=== PATIENT | male | born 1995 | race African-American/Black ===

== ENCOUNTER 2016-05-31 17:14 | Emergency (ER) | payer OTHER ==
--- NOTE | 2016-05-31 17:18 | ER Document Report ---
ED Medical Screen (RME) - General Stated Complaint: RIGHT LEG PAIN Mode of Arrival: Ambulatory Information source: Patient Notes: pt performed 12 mile hike 3 days ago and c/o pain to RLE. Pt c/o pain to right knee area. TRAVEL OUTSIDE OF THE [place] IN LAST 30 DAYS: No - Related Data Allergies/Adverse Reactions: No Known Allergies Allergy (Verified 05/31/16 17:17) Past Medical History - Immunizations Immunizations up to date: Yes Hx Diphtheria, Pertussis, Tetanus Vaccination: Yes Physical Exam - Extremities General lower extremity: Tender - r knee
--- NOTE | 2016-05-31 17:44 | ER Document Report ---
ED Extremity Problem, Lower - General Chief Complaint: Leg Pain Stated Complaint: RIGHT LEG PAIN Time seen by provider: 17:39 Mode of Arrival: Ambulatory Information source: Patient Notes: 20-year-old male presents to ED for pain in his right thigh and right knee for the last 3 days. He states he performed a 12 mile hike in the 3 days ago and pain started during the hike. Has no has not fallen. Does not smoke has not been on any long flights or trips does not have cancer. TRAVEL OUTSIDE OF THE [place] IN LAST 30 DAYS: No - HPI Patient complains to provider of: Pain. No: Injury, Swelling Location: Knee, Thigh Occurred: Other - 3 days Onset/Duration: Gradual Quality of pain: Sharp Severity: Moderate Pain Level: 3 Recent injury: No Associated symptoms: Painful ambulation Exacerbated by: Movement, Walking Relieved by: Nothing - Related Data Allergies/Adverse Reactions: No Known Allergies Allergy (Verified 05/31/16 17:17) Past Medical History - General Information source: Patient - Social History Smoking Status: Never Smoker Cigarette use (# per day): No Chew tobacco use (# tins/day): No Smoking Education Provided: No Frequency of alcohol use: None Drug Abuse: None Occupation: [employer] Lives with: Family Family History: denies: Arthritis, CAD, COPD, CVA, DM, Hyperlipidemia, Hypertension, Malignancy, Thyroid Disfunction Patient has suicidal ideation: No Patient has homicidal ideation: No - Past Medical History Cardiac Medical History: Reports: None Pulmonary Medical History: Reports: None EENT Medical History: Reports: None Neurological Medical History: Reports: None Endocrine Medical History: Reports: None Renal/ Medical History: Reports: None Malignancy Medical History: Reports None GI Medical History: Reports: None Musculoskeltal Medical History: Reports None Skin Medical History: Reports None Psychiatric Medical History: Reports: None Traumatic Medical History: Reports: None Infectious Medical History: Reports: None Surgical Hx: Negative Past Surgical History: Reports: None - Immunizations Immunizations up to date: Yes Hx Diphtheria, Pertussis, Tetanus Vaccination: Yes Review of Systems - Review of Systems Constitutional: No symptoms reported EENT: No symptoms reported Cardiovascular: No symptoms reported Respiratory: No symptoms reported Gastrointestinal: No symptoms reported Genitourinary: No symptoms reported Male Genitourinary: No symptoms reported Musculoskeletal: No symptoms reported Skin: No symptoms reported Hematologic/Lymphatic: No symptoms reported Neurological/Psychological: No symptoms reported -: Yes All other systems reviewed and negative Physical Exam - Vital signs Vitals: Temp Pulse Resp BP Pulse Ox 98.1 F 84 12 125/69 98 05/31/16 17:17 05/31/16 17:17 05/31/16 17:17 05/31/16 17:17 05/31/16 17:17 Interpretation: Normal - General General appearance: Appears well, Alert - HEENT Head: Normocephalic, Atraumatic Eyes: Normal Pupils: PERRL - Respiratory Respiratory status: No respiratory distress Chest status: Nontender Breath sounds: Normal Chest palpation: Normal - Cardiovascular Rhythm: Regular Heart sounds: Normal auscultation Murmur: No - Abdominal Inspection: Normal Distension: No distension Bowel sounds: Normal Tenderness: Nontender Organomegaly: No organomegaly - Back Back: Normal, Nontender - Extremities General upper extremity: Normal inspection, Nontender, Normal color, Normal ROM , Normal temperature General lower extremity: Normal inspection, Normal color, Normal ROM, Normal temperature, Normal weight bearing. No: Cathleen's sign Thigh: Tender - Back of thigh. No: Abrasion, Deformity, Dislocation, Ecchymosis , Instability, Laceration, Unable to bear weight Knee: Tender, Pain with ROM, Patellar tendon intact. No: Abrasion, Deformity, Dislocation, Drawer's test instability, Ecchymosis, Instability, Joint effusion , Laceration, Laxity with valgus stress, Laxity with varus stress, Popliteal fossa tender, Tender joint line, Unable to bear weight - Neurological Neuro grossly intact: Yes Cognition: Normal Orientation: AAOx4 Liz Coma Scale Eye Opening: Spontaneous Muir Coma Scale Verbal: Oriented Muir Coma Scale Motor: Obeys Commands Muir Coma Scale Total: 15 Speech: Normal Motor strength normal: LUE, RUE, LLE, RLE Sensory: Normal - Psychological Associated symptoms: Normal affect, Normal mood - Skin Skin Temperature: Warm Skin Moisture: Dry Skin Color: Normal Course - Re-evaluation Re-evalutation: 05/31/16 18:17 Written report of x-ray given to patient. Patient treated with Toradol IM in the emergency room and discharged home with a prescription for Flexeril. - Vital Signs Vital signs: Temp Pulse Resp BP Pulse Ox 98.1 F 84 12 125/69 98 05/31/16 17:17 05/31/16 17:17 05/31/16 17:17 05/31/16 17:17 05/31/16 17:17 - Diagnostic Test Radiology reviewed: Image reviewed, Reports reviewed Discharge - Discharge Clinical Impression: Myalgia Disposition: HOME, SELF-CARE Additional Instructions: Myalagia (Muscle Pain) Myalgia is pain in the muscles. We use the word myalgia to describe muscle pain where there's no history of injury, no known muscle disease, and the muscles are normal to examination. Myalgias can be a symptom of an acute illness , such as influenza, hepatitis, or any viral illness, especially with fever. Sometimes the muscle pain comes before any other symptoms. Myalgia can also be an early symptom of inflammatory muscle disease, such as lupus. If myalgia is accompanied by an acute illness that explains the muscle pain , then no further testing needs to be done. When there's no clear reason for the pain, tests may be done to see if there's an inflammatory or other disease of the muscles. The usual treatment for myalgias is anti-inflammatory medication, such as ibuprofen. Muscle aches may be soothed with a heating pad or hot compress. If muscles remain painful for more than a few days, you'll need testing and followup. Return if a muscle becomes swollen, red, or severely painful. USE OF TYLENOL (ACETAMINOPHEN): Acetaminophen may be taken for pain relief or fever control. It's much safer than aspirin, offering a wider range of "safe" dosages. It is safe during . Some brand names are Tylenol, Panadol, Datril, Anacin 3, Tempra, and Liquiprin. Acetaminophen can be repeated every four hours. The following are maximum recommended dosages: WEIGHT Dose Drops Elixir Chewable( 80mg) (LBS.) drprs=droppers tsp=teaspoon 6 40 mg 0.4 ml (1/2) 6-11 80 mg 0.8 ml (full) tsp 1 tab 12-16 120 mg 1 1/2 drprs 3/4 tsp 1 1/2 tabs 17-23 160 mg 2 drprs 1 tsp 2 tabs 24-30 240 mg 3 drprs 1 1/2 tsp 3 tabs 30-35 320 mg 2 tsp 4 tabs 36-41 360 mg 2 1/4 tsp 4 1/2 tabs 42-47 400 mg 2 1/2 tsp 5 tabs 48-53 480 mg 3 tsp 6 tabs 54-59 520 mg 3 1/4 tsp 6 1/2 tabs 60-64 560 mg 3 1/2 tsp 7 tabs 65-70 600 mg 3 3/4 tsp 7 1/2 tabs 71-76 640 mg 4 tsp 8 tabs 77-82 720 mg 4 1/2 tsp 9 tabs 83-88 800 mg 5 tsp 10 tabs >89 pounds or adults 650 mg to 900 mg Acetaminophen can be repeated every four hours. Maximum dose not to exceed 4000 mg a day. These maximum recommended dosages are slightly higher than the dosages written on the product container, but these dosages are very safe and below the toxic dosage for acetaminophen. ICE PACKS: Apply ice packs frequently against the painful area. Many different schedules are recommended, such as "20 minutes on, 20 minutes off" or "one hour ice, two hours rest." If you need to work, you may need to go longer between ice treatments. You should plan to have the area ice packed AT LEAST one fourth of the time. The ice should be applied over the wrap, tape, or splint, or over a layer of cloth -- not directly against the skin. Some ice bags have a built-in cloth and can be put directly on the skin. WARM PACKS: After approximately two days, apply gentle heat (such as a heating pad or hot water bottle) for about 20 to 30 minutes about every two hours -- at least four times daily. Warmth and elevation will help you make a more rapid recovery , and will ease the pain considerably. Do not use HOT heat, and never apply heat for longer than 30 minutes. The continuous heat can invisibly damage skin and muscles -- even when no burn is seen on the surface. Damaged muscles can make you MORE sore. MUSCLE RELAXERS: Muscle relaxing medications are usually prescribed for acute muscle spasm or injury to the neck and back. They are often combined with antiinflammatory pain medication for increased relief. You may stop the muscle relaxer when the pain and stiffness have improved. Start the medication again if spasms recur. Muscle relaxers may cause drowsiness, especially with the first dose. Do not operate machinery or drive while under the effects of the medication. Most muscle relaxers last up to 24 hours. Do not combine the medication with alcohol. Toradol Injection You have been given an injection of ketorolac tromethamine (Toradol). This is an excellent, safe drug for pain control. It also has potent antiinflammatory action. You should have significant pain relief within about one hour. Toradol is not addicting and is non-sedating. It does not interfere with driving or work. Call or return if you develop itching, hives, shortness of breath, or rash. USE OF [id number] IBUPROFEN: Ibuprofen (Advil, Nuprin, Medipren, Motrin IB) is a medication for fever and pain control. In addition, it has anti- inflammatory effects which may be beneficial, especially in the treatment of injuries. It's best to take ibuprofen with food. Persons with ulcer disease or allergy to aspirin should notify their physician of this before taking ibuprofen. Ibuprofen can be given every four to six hours, for a total of four doses daily. Age Pain or fever dose Antiinflammatory dose 6-8 yr 200 mg (1 tab) 200 mg (1 tab) 9-11 yr 200 mg (1 tab) 200-400 mg (1-2 tab) 11-14 yr 200-400 mg (1-2 tab) 400 mg (2 tab) 15-adult 400 mg (2 tab) 600 mg (3 tab) FOLLOW-UP CARE: If you have been referred to a physician for follow-up care, call the physician s office for an appointment as you were instructed or within the next two days. If you experience worsening or a significant change in your symptoms, notify the physician immediately or return to the Emergency Department at any time for re-evaluation. Prescriptions: Cyclobenzaprine HCl [Flexeril 10 mg Tablet] 10 mg PO TIDP PRN #15 tab PRN Reason: Forms: Return to Work
[2016-05-31] MEDS ORDERED: KETOROLAC TROMETHAMINE 60 MG/2 ML SDV IM ONE (17:46)
[2016-05-31 18:28] VITALS: BP 115/69
== END 2016-05-31 18:28 | disposition home or self-care (01) ==
LOC: ER 17:14
DX: S93.602A Unspecified sprain of left foot, initial encounter (principal); M79.672 Pain in left foot; W18.40XA Slipping, tripping and stumbling without falling, unspecified, initial encounter
CPT/HCPCS: 99283; 73564; J1885

== ENCOUNTER 2017-09-06 15:39 | Emergency (ER) | payer OTHER ==
[2017-09-06 15:46] VITALS: BP 157/86
[2017-09-06] MEDS ORDERED: TERBUTALINE SULFATE 2.5 MG TABLET PO ONE ×2 (16:07→17:07)
--- NOTE | 2017-09-06 16:08 | ER Document Report ---
ED Medical Screen (RME) - General Chief Complaint: Groin Pain Stated Complaint: GROIN PAIN Time Seen by Provider: 09/06/17 16:03 Notes: 21-year-old male patient with painful erection 3 hours after going to the gym. He has been taking testosterone booster supplement but none in the past 3 weeks. He was seen here on 10/28/2015 for similar problem and was taking bodybuilding enhancements at that time. He was treated with p.o. terbutaline and had resolution of his symptoms. He will be given a dose of terbutaline 10 mg p.o. at this time. I have greeted and performed a rapid initial assessment of this patient. A comprehensive ED assessment and evaluation of the patient, analysis of test results and completion of the medical decision making process will be conducted by additional ED providers. TRAVEL OUTSIDE OF THE [place] IN LAST 30 DAYS: No - Related Data Allergies/Adverse Reactions: No Known Allergies Allergy (Verified 05/31/16 17:17) Past Medical History - Social History Chew tobacco use (# tins/day): No Frequency of alcohol use: None Drug Abuse: None Renal/ Medical History: Denies: Hx Peritoneal Dialysis - Immunizations Immunizations up to date: Yes Hx Diphtheria, Pertussis, Tetanus Vaccination: Yes Physical Exam - Vital signs Vitals: Temp Pulse Resp BP Pulse Ox 97.9 F 64 14 157/86 H 99 09/06/17 15:45 09/06/17 15:45 09/06/17 15:45 09/06/17 15:45 09/06/17 15:45 Course - Vital Signs Vital signs: Temp Pulse Resp BP Pulse Ox 97.9 F 64 14 157/86 H 99 09/06/17 15:45 09/06/17 15:45 09/06/17 15:45 09/06/17 15:45 09/06/17 15:45
--- NOTE | 2017-09-06 17:59 | ER Document Report ---
ED General - General Chief Complaint: Groin Pain Stated Complaint: GROIN PAIN Time Seen by Provider: 09/06/17 16:03 TRAVEL OUTSIDE OF THE [place] IN LAST 30 DAYS: No - HPI Notes: Patient is a 21-year-old male with no significant past medical history presents to the ED complaining of a painful erection now for about 5 hours. Patient states that he takes uxog-nzi-yilwtbs supplements and testosterone boosters for lifting, but has not had any in the past 1-2 weeks. He was seen last year for similar problem due to supplements and he was treated with p.o. terbutaline and had resolution of her symptoms. Patient has already received 1 dose of the terbutaline without any changes. Patient has been eating and drinking without difficulties. He is urinating normally otherwise and having normal bowel movements. Denies any drug allergies. No other concerns or complaints at this time. Denies any headache, fever, head injury, URI, sore throat, chest pain, palpitations, syncope, cough, shortness of breath, wheeze, dyspnea, abdominal pain, nausea/vomiting/diarrhea, urinary retention, dysuria, hematuria, testicular pain, urethral discharge, or rash. No h/o sickle cell - Related Data Allergies/Adverse Reactions: No Known Allergies Allergy (Verified 05/31/16 17:17) Past Medical History - Social History Smoking Status: Never Smoker Chew tobacco use (# tins/day): No Frequency of alcohol use: None Drug Abuse: None Family History: denies: Arthritis, CAD, COPD, CVA, DM, Hyperlipidemia, Hypertension, Malignancy, Thyroid Disfunction Patient has suicidal ideation: No Patient has homicidal ideation: No Renal/ Medical History: Denies: Hx Peritoneal Dialysis - Immunizations Immunizations up to date: Yes Hx Diphtheria, Pertussis, Tetanus Vaccination: Yes Review of Systems - Review of Systems -: Yes All other systems reviewed and negative Physical Exam - Vital signs Vitals: Temp Pulse Resp BP Pulse Ox 97.9 F 64 14 157/86 H 99 09/06/17 15:45 09/06/17 15:45 09/06/17 15:45 09/06/17 15:45 09/06/17 15:45 - Notes Notes: PHYSICAL EXAMINATION: GENERAL: Well-appearing, well-nourished and in no acute distress. LUNGS: Breath sounds clear to auscultation bilaterally and equal. No wheezes rales or rhonchi. HEART: Regular rate and rhythm without murmurs, rubs, gallops. ABDOMEN: Soft, nontender, nondistended abdomen. No guarding, no rebound. No masses appreciated. Normal bowel sounds present. No CVA tenderness bilaterally. : Priapism with mild tenderness to palp, otherwise non-tender to palp of the testicles. No inguinal adenopathy. No discharge or obvious hernia noted. Musculoskeletal: FROM to passive/active. Strength 5+/5. Extremities: No cyanosis, clubbing, or edema b/l. Peripheral pulses 2+. Capillary refill less than 3 seconds. NEUROLOGICAL: Normal speech, normal gait. Normal sensory, motor exams PSYCH: Normal mood, normal affect. SKIN: Warm, Dry, normal turgor, no rashes or lesions noted. Course - Re-evaluation Re-evalutation: 09/06/17 20:25 Dr. Javier aided with instruction and dosing for this patient as well as treatment approach. Dr. Javier in agreement with dispo/plan after review of results and procedure. Patient is an afebrile, well-hydrated, 21-year-old male who presents to the ED with priapism. Vitals are acceptable. PE is otherwise unremarkable. Pt was given 1 PO dose of terbutaline and 1 subq dose as well without change. An injection of 500 mcg phenylephrine in 1ml solution mixed with saline placed bilaterally which resolved symptoms. Patient states that he is "back to normal. " No other labs or imaging warranted at this time based on H&P. Patient advised not to take anymore the supplements. Patient to go home and start taking pseudoephedrine and he may use as needed for any recurrence. Advise recheck with PCM in 3-5 days. Consider consult with a urologist as well. Return to the ED with any worsening/concerning symptoms otherwise as reviewed discharge. Patient is in agreement. - Vital Signs Vital signs: Temp Pulse Resp BP Pulse Ox 97.9 F 64 14 157/86 H 99 09/06/17 15:45 09/06/17 15:45 09/06/17 15:45 09/06/17 15:45 09/06/17 15:45 Procedures - Additional Procedures Intracavernous Injection Time performed: 20:15 Additional Procedures: Other - Priapism: 500mcg of phenylephrine mixed with 9cc saline = 500mcg/ml solution. 1ml placed b/l with a 30g needle successfully w/o complications. Pt tolerated procedure well and had resolution within 5minutes. Discharge - Discharge Clinical Impression: Priapism Condition: Stable Disposition: HOME, SELF-CARE Instructions: Priapism ([facility]) Additional Instructions: Avoid supplementation Take oral pseudoephedrine beginning tonight for the next 1-2 days and then as needed thereafter Maintain adequate fluid intake Monitor for any worsening symptoms Recheck with your PCM in 3-5 days Consider consult with a urologist Return to the ED with any worsening symptoms and/or development of fever, headache, chest pain, palpitations, syncope, shortness of breath, trouble breathing, abdominal pain, n/v/d, blood in stool/urine, loss of control of bowel /bladder, urinary retention, muscle weakness/paralysis, saddle anesthesia, numbness/tingling, erection that is unresponsive to oral pseudafed, or other worsening symptoms that are concerning to you. Forms: Elevated Blood Pressure Referrals: [facility] [Provider Group] - Follow up as needed
[2017-09-06] MEDS ORDERED: TERBUTALINE SULFATE INJ/PF 1 MG/1 ML SDV SUBCUT ONE (18:27)
[2017-09-06] MEDS ORDERED: TERBUTALINE SULFATE 2.5 MG TABLET ONE (18:28)
[2017-09-06] MEDS ORDERED: PHENYLEPHRINE HCL INJ/PF 10 MG/1 ML SDV INJ PRN (19:39)
== END 2017-09-06 20:39 | disposition home or self-care (01) ==
LOC: ER 15:39
DX: N48.33 Priapism, drug-induced (principal); T38.7X5A Adverse effect of androgens and anabolic congeners, initial encounter; R10.30 Lower abdominal pain, unspecified
CPT/HCPCS: 99284; 96372; 96374; J2370; J3105; J3490

== ENCOUNTER 2017-09-11 05:14 | Emergency (ER) | payer OTHER ==
[2017-09-11 05:31] VITALS: BP 149/70
[2017-09-11] MEDS ORDERED: PHENYLEPHRINE HCL INJ/PF 10 MG/1 ML SDV INJ PRN (05:37)
--- NOTE | 2017-09-11 05:43 | ER Document Report ---
ED General - General Chief Complaint: Penile Problem Stated Complaint: PROLONGED ERECTION Time Seen by Provider: 09/11/17 05:34 TRAVEL OUTSIDE OF THE [place] IN LAST 30 DAYS: No - HPI Notes: Patient is a 21-year-old male with no significant past medical history presents to the ED complaining of a painful erection now for about 4 hours. Patient states that he takes xrip-uwq-tqhzzty supplements and testosterone boosters for lifting, but has not had any in the past 2-3 weeks. I did see him for this same issue this past week. Pt states that his symptoms were resolved until 0100 this morning. Pt states that he was taking pseudafed daily for 2 days which seemed to keep the prolonged erection away, but he hasn't been taking it recently. He states that his symptoms are the same as the recent visit. No other concerns or complaints. Patient has been eating and drinking without difficulties. He is urinating normally otherwise and having normal bowel movements. Denies any drug allergies. Pt was taking trazadone, but has not been taking it in the last 1.5 weeks. No other concerns or complaints at this time. Denies any headache, fever, head injury, URI, sore throat, chest pain, palpitations, syncope, cough, shortness of breath, wheeze, dyspnea, abdominal pain, nausea/vomiting/diarrhea, urinary retention, dysuria, hematuria, testicular pain, urethral discharge, or rash. - Related Data Allergies/Adverse Reactions: No Known Allergies Allergy (Verified 05/31/16 17:17) Past Medical History - Social History Smoking Status: Never Smoker Family History: denies: Arthritis, CAD, COPD, CVA, DM, Hyperlipidemia, Hypertension, Malignancy, Thyroid Disfunction Renal/ Medical History: Denies: Hx Peritoneal Dialysis - Immunizations Immunizations up to date: Yes Hx Diphtheria, Pertussis, Tetanus Vaccination: Yes Review of Systems - Review of Systems -: Yes All other systems reviewed and negative Physical Exam - Vital signs Vitals: Temp Pulse Resp BP Pulse Ox 97.9 F 63 18 149/70 H 100 09/11/17 05:28 09/11/17 05:28 09/11/17 05:28 09/11/17 05:28 09/11/17 05:28 - Notes Notes: PHYSICAL EXAMINATION: GENERAL: Well-appearing, well-nourished and in no acute distress. LUNGS: Breath sounds clear to auscultation bilaterally and equal. No wheezes rales or rhonchi. HEART: Regular rate and rhythm without murmurs, rubs, gallops. ABDOMEN: Soft, nontender, nondistended abdomen. No guarding, no rebound. No masses appreciated. Normal bowel sounds present. No CVA tenderness bilaterally. : Priapism with mild tenderness to palp, otherwise non-tender to palp of the testicles. No inguinal adenopathy. No discharge or obvious hernia noted. Musculoskeletal: FROM to passive/active. Strength 5+/5. Extremities: No cyanosis, clubbing, or edema b/l. Peripheral pulses 2+. Capillary refill less than 3 seconds. NEUROLOGICAL: Normal speech, normal gait. Normal sensory, motor exams PSYCH: Normal mood, normal affect. SKIN: Warm, Dry, normal turgor, no rashes or lesions noted. Course - Re-evaluation Re-evalutation: 09/11/17 06:04 Dr. Hu aided with instruction and dosing for this patient as well as treatment approach. Dr. Hu in agreement with dispo/plan after review of results and procedure. Patient is an afebrile, well-hydrated, 21-year-old male who presents to the ED with priapism. Vitals are acceptable. PE is otherwise unremarkable. One injection of 500 mcg phenylephrine in 1ml solution mixed with saline placed bilaterally to the cavernosa which resolved symptoms. Patient states that he is "back to normal." PE confirmed that he is flaccid and no longer erect or tender. No other labs or imaging warranted at this time based on H&P. Patient to go home and start taking pseudoephedrine and he may use as needed for any recurrence. Advise recheck with PCM in 3-5 days. Schedule a consult with a urologist as well. Return to the ED with any worsening/concerning symptoms otherwise as reviewed discharge. Patient is in agreement. - Vital Signs Vital signs: Temp Pulse Resp BP Pulse Ox 97.9 F 63 18 149/70 H 100 09/11/17 05:28 09/11/17 05:28 09/11/17 05:28 09/11/17 05:28 09/11/17 05:28 Procedures - Additional Procedures Intracavernous Injection Time performed: 06:00 Notes: 09/11/17 06:06 Priapism: 10mg of phenylephrine mixed with 19cc saline = 500mcg/ml solution. 1ml placed b/l with a 30g needle successfully w/o complications. Pt tolerated procedure well and had resolution within 5 minutes. Discharge - Discharge Clinical Impression: Priapism Condition: Stable Disposition: HOME, SELF-CARE Additional Instructions: Avoid supplementation and discontinue trazodone (may cause priapism) Take oral pseudoephedrine beginning tonight for the next 1-2 days and then as needed thereafter Maintain adequate fluid intake Monitor for any worsening symptoms Recheck with your PCM in 3-5 days Call and schedule a consult with a urologist Return to the ED with any worsening symptoms and/or development of fever, headache, chest pain, palpitations, syncope, shortness of breath, trouble breathing, abdominal pain, n/v/d, blood in stool/urine, loss of control of bowel /bladder, urinary retention, muscle weakness/paralysis, saddle anesthesia, numbness/tingling, erection that is unresponsive to oral pseudafed, or other worsening symptoms that are concerning to you. Forms: Elevated Blood Pressure Referrals: BETZY GALARZA MD [[facility]] - Follow up as needed
== END 2017-09-11 06:25 | disposition home or self-care (01) ==
LOC: ER 05:14
DX: N48.30 Priapism, unspecified (principal)
CPT/HCPCS: 99284; 96374; J2370

== ENCOUNTER 2017-09-13 05:49 | Emergency (ER) | payer OTHER ==
[2017-09-13] MEDS ORDERED: PHENYLEPHRINE HCL INJ/PF 10 MG/1 ML SDV INJ PRN (05:53)
[2017-09-13 05:58] VITALS: BP 151/95
--- NOTE | 2017-09-13 06:20 | ER Document Report ---
ED General - General Chief Complaint: Penile Pain Stated Complaint: PAINFUL ERECTION Time Seen by Provider: 09/13/17 05:59 TRAVEL OUTSIDE OF THE [place] IN LAST 30 DAYS: No - HPI Notes: Patient is a 21-year-old male with no significant past medical history presents to the ED complaining of a painful erection now for about 4 hours. This is the 3rd time in the last week that I have seen this patient for the same issue. Patient states that he takes [id number]-floccju supplements and testosterone boosters for lifting, but has not had any in the past 2-3 weeks. Pt states that he was taking Sudafed daily for 2 days. He states that he was sexually active yesterday and did not have any issues becoming flaccid, but became aroused this past night and it didn't go away. Pt states that he did not have sex, but was able to 'relieve' himself, but without return to normal. He states that his symptoms are the same as the recent visits. He is scheduled with Urology in 2 days. No other concerns or complaints. Patient has been eating and drinking without difficulties. He is urinating normally otherwise and having normal bowel movements. Denies any drug allergies. No other concerns or complaints at this time. Denies any headache, fever, head injury, URI, sore throat, chest pain, palpitations, syncope, cough, shortness of breath , wheeze, dyspnea, abdominal pain, nausea/vomiting/diarrhea, urinary retention, dysuria, hematuria, testicular pain, urethral discharge, or rash. - Related Data Allergies/Adverse Reactions: No Known Allergies Allergy (Verified 05/31/16 17:17) Past Medical History - Social History Smoking Status: Never Smoker Family History: denies: Arthritis, CAD, COPD, CVA, DM, Hyperlipidemia, Hypertension, Malignancy, Thyroid Disfunction Renal/ Medical History: Denies: Hx Peritoneal Dialysis - Immunizations Immunizations up to date: Yes Hx Diphtheria, Pertussis, Tetanus Vaccination: Yes Review of Systems - Review of Systems -: Yes All other systems reviewed and negative Physical Exam - Vital signs Vitals: Temp Pulse Resp BP Pulse Ox 98.1 F 67 18 151/95 H 67 L 09/13/17 05:58 09/13/17 05:58 09/13/17 05:58 09/13/17 05:58 09/13/17 05:58 - Notes Notes: PHYSICAL EXAMINATION: GENERAL: Well-appearing, well-nourished and in no acute distress. LUNGS: Breath sounds clear to auscultation bilaterally and equal. No wheezes rales or rhonchi. HEART: Regular rate and rhythm without murmurs, rubs, gallops. ABDOMEN: Soft, nontender, nondistended abdomen. No guarding, no rebound. No masses appreciated. Normal bowel sounds present. No CVA tenderness bilaterally. : Priapism with mild tenderness to palp, otherwise non-tender to palp of the testicles. No inguinal adenopathy. No discharge or obvious hernia noted. Musculoskeletal: FROM to passive/active. Strength 5+/5. Extremities: No cyanosis, clubbing, or edema b/l. Peripheral pulses 2+. Capillary refill less than 3 seconds. NEUROLOGICAL: Normal speech, normal gait. Normal sensory, motor exams PSYCH: Normal mood, normal affect. SKIN: Warm, Dry, normal turgor, no rashes or lesions noted. Course - Re-evaluation Re-evalutation: 09/13/17 06:23 Patient is an afebrile, well-hydrated, 21-year-old male who presents to the ED with priapism. Vitals are acceptable. PE is otherwise unremarkable. One injection of 500 mcg phenylephrine per 1ml solution mixed with saline placed bilaterally to the cavernosa which resolved symptoms within 5 minutes. Patient states that he is "back to normal." PE confirmed that he is flaccid and no longer erect or tender. No other labs or imaging warranted at this time based on H&P. Patient to go home and start taking sudafed and he may use as needed for any recurrence. Advise recheck with PCM in 3-5 days. Keep appointment with Urology on Thursday. Return to the ED with any worsening/concerning symptoms otherwise as reviewed discharge. Patient is in agreement. - Vital Signs Vital signs: Temp Pulse Resp BP Pulse Ox 98.1 F 67 18 151/95 H 67 L 09/13/17 05:58 09/13/17 05:58 09/13/17 05:58 09/13/17 05:58 09/13/17 05:58 Procedures - Additional Procedures Intravacernous injection Time performed: 06:15 Notes: 09/13/17 06:25 Priapism: 10mg of phenylephrine mixed with 19cc saline = 500mcg/ml solution. 1ml placed b/l with a 30g needle successfully w/o complications. Pt tolerated procedure well and had resolution within 5 minutes. Discharge - Discharge Clinical Impression: Priapism Condition: Stable Disposition: HOME, SELF-CARE Additional Instructions: Avoid supplementation Take oral Sudafed beginning tonight for the next 1-2 days and then as needed thereafter Try your best to avoid developing an erection until evaluation with Urology. Maintain adequate fluid intake Monitor for any worsening symptoms Recheck with your PCM in 3-5 days Keep appointment with the Urologist on Thursday* Return to the ED with any worsening symptoms and/or development of fever, headache, chest pain, palpitations, syncope, shortness of breath, trouble breathing, abdominal pain, n/v/d, blood in stool/urine, loss of control of bowel /bladder, urinary retention, muscle weakness/paralysis, saddle anesthesia, numbness/tingling, erection that is unresponsive to oral Sudafed, or other worsening symptoms that are concerning to you. Referrals: BETZY GALARZA MD [[facility]] - 09/15/17
== END 2017-09-13 06:30 | disposition home or self-care (01) ==
LOC: ER 05:49
DX: N48.30 Priapism, unspecified (principal)
CPT/HCPCS: 99283; 96374; J2370

== ENCOUNTER 2017-09-16 04:39 | Emergency (ER) | payer OTHER ==
[2017-09-16] MEDS ORDERED: PHENYLEPHRINE HCL INJ/PF 10 MG/1 ML SDV INJ ONE (04:52)
--- NOTE | 2017-09-16 05:31 | ER Document Report ---
ED General - General Chief Complaint: Penile Problem Stated Complaint: GENITAL PAIN Notes: Patient is a very pleasant 22-year-old male who presents with complaint of previous him. He has had this twice before. He is reduced both times here in the ER. He actually has an appointment with his urologist this morning at 10 AM. last time he was here he said he received 2 injections in his penis and immediately went flaccid within 5 minutes. I did review the previous charts and it appears he received phenylephrine injections. Patient says the erection happens spontaneously. Says it is been there for approximate 4 hours. He has no history of sickle cell disease. He does have a history of using testosterone supplementation. He says he recently just quit this because of the priapism. TRAVEL OUTSIDE OF THE [place] IN LAST 30 DAYS: No - Related Data Allergies/Adverse Reactions: No Known Allergies Allergy (Verified 05/31/16 17:17) Past Medical History - Social History Smoking Status: Unknown if Ever Smoked Frequency of alcohol use: None Drug Abuse: None Family History: Reviewed & Not Pertinent. denies: Arthritis, CAD, COPD, CVA, DM , Hyperlipidemia, Hypertension, Malignancy, Thyroid Disfunction Patient has suicidal ideation: No Patient has homicidal ideation: No Renal/ Medical History: Denies: Hx Peritoneal Dialysis - Immunizations Immunizations up to date: Yes Hx Diphtheria, Pertussis, Tetanus Vaccination: Yes Review of Systems - Review of Systems Notes: My Normal Review Basic REVIEW OF SYSTEMS: CONSTITUTIONAL : Denies fever, chills, or sweats. Denies recent illness. GASTROINTESTINAL: Denies abdominal pain. GENITOURINARY: Previous of her last 4 hours. MUSCULOSKELETAL: Denies neck or back pain or joint pain or swelling. SKIN: Denies rash or skin lesions. HEMATOLOGIC : Denies easy bruising or bleeding. No recent history of sickle cell disease. ALL OTHER SYSTEMS REVIEWED AND NEGATIVE. Physical Exam - Notes Notes: General Appearance: Well nourished, alert, cooperative, no acute distress, no obvious discomfort. Appearing Vitals: reviewed, See vital signs table. Genitalia: Patient's has almost completely full erection. No discoloration of the penis. Skin: warm, dry, appropriate color, no rash Neuro: speech clear, oriented x 3, normal affect, responds appropriately to questions. Course - Re-evaluation Re-evalutation: 09/16/17 05:36 Patient responded well to aspiration of 5 mL's of blood followed by injection of Moncho-Synephrine. Patient is now flaccid without any further complaints. Tolerated procedure well. Patient be discharged her to follow-up closely with his urologist this morning. He is encouraged to return to ER if he has recurrence of erection that does not resolve on its own within an hour. Patient agrees with plan will be discharged home. I encouraged him to continue to stay away from testosterone supplementation. Dictation of this chart was performed using voice recognition software; therefore, there may be some unintended grammatical errors. Procedures - Additional Procedures priapism injection Additional Procedures: Other Notes: 09/16/17 05:29 Patient's penile shaft was cleaned with chlorhexidine. I then used a 23-gauge butterfly needle and aspirated 5 mL's of blood from the corpus cavernosum on the right side. I then injected 1 mL of a Moncho-Synephrine mixture containing 500mcg /ml. I then injected 1 mL of the Moncho-synephrine mixture on the left side the corpus cavernosum as well. Patient's prism resolved within 5 minutes. I placed a Coban wrap around patient's penile shaft. Informed him to remove it within 1 hour. I wrapped the Coban wrap firm but not tight. Patient has complete resolution of symptoms and feels better. I informed him to remove the Coban wrapping in 1 hour. No comp occasions. Neosynephrine mixture was created by mixing 1ml of the 10mg/ml Nesoynephrine solution with 19mls of normal saline ; therefore, giving 10mg of Neosynephrine in 20mls of solution. 09/16/17 05:32 09/16/17 05:32 Discharge - Discharge Clinical Impression: Priapism Condition: Good Disposition: HOME, SELF-CARE Additional Instructions: Please return to the ER immediately if you develop recurrence of an erection that will not go away within an hour. Please remove the elastic wrap of your penis in 1 hour. Please follow up closely with your urologist at 10am this morning as scheduled.
== END 2017-09-16 05:37 | disposition home or self-care (01) ==
LOC: ER 04:39
DX: N48.30 Priapism, unspecified (principal)
CPT/HCPCS: 99283; 96374; J2370

== ENCOUNTER 2017-09-17 09:40 | Emergency (ER) | payer OTHER ==
[2017-09-17 09:49] VITALS: BP 140/79
[2017-09-17] MEDS ORDERED: PSEUDOEPHEDRINE HCL 30 MG TABLET PO ONE (09:57)
--- NOTE | 2017-09-17 10:01 | ER Document Report ---
ED Medical Screen (RME) - General Chief Complaint: Groin Pain Stated Complaint: GROIN PAIN Time Seen by Provider: 09/17/17 09:56 Notes: RME DISCLOSURE I have seen this patient as part of a Rapid Medical Evaluation and, if applicable, placed any initially appropriate orders. The patient will be seen and fully evaluated, including a full history and physical exam, by a provider ( in Main ED or Fast Track) when a room becomes available. 22-year-old male PMH recurrent priapism (in the past has required injections) here with complaints of erection that started approximately 4 hours ago. He states that it started with "morning wood" and had progressively worsened to a point but since then it has started to improve. He did not try taking anything for the symptoms. He states this all started when he started taking testosterone boosters 2 months ago however he has not taken any in almost 2 months. He does not have sickle cell or other medical history, he reports. He had a urologist appointment yesterday but they told him he needed a referral to be seen. He denies using Viagra or other similar medications. TRAVEL OUTSIDE OF THE [place] IN LAST 30 DAYS: No - Related Data Allergies/Adverse Reactions: No Known Allergies Allergy (Verified 05/31/16 17:17) Past Medical History - Social History Frequency of alcohol use: Occasional Renal/ Medical History: Denies: Hx Peritoneal Dialysis - Immunizations Immunizations up to date: Yes Hx Diphtheria, Pertussis, Tetanus Vaccination: Yes Physical Exam - Vital signs Vitals: Temp Pulse Resp BP Pulse Ox 98.8 F 61 16 140/79 H 98 09/17/17 09:45 09/17/17 09:45 09/17/17 09:45 09/17/17 09:45 09/17/17 09:45 Course - Vital Signs Vital signs: Temp Pulse Resp BP Pulse Ox 98.8 F 61 16 140/79 H 98 09/17/17 09:45 09/17/17 09:45 09/17/17 09:45 09/17/17 09:45 09/17/17 09:45
--- NOTE | 2017-09-17 10:23 | ER Document Report ---
ED GI/ - General Chief Complaint: Groin Pain Stated Complaint: GROIN PAIN Time Seen by Provider: 09/17/17 09:56 Notes: History of present illness history of-22 years old male with multiple episodes of breast present within the last 2 months, presents today with another episode. Lasted for 2 hours by the time I saw him it has come down pinning penile stiffness as decreased. He went to the urologist yesterday but he needed a referral. Therefore came to the ED. REVIEW OF SYSTEMS: CONSTITUTIONAL : Denies fever, chills, or sweats. Denies recent illness. EENT: Denies eye, ear, throat, or mouth pain or symptoms. Denies nasal or sinus congestion or discharge. Denies throat, tongue, or mouth swelling or difficulty swallowing. CARDIOVASCULAR: Denies chest pain. Denies palpitations or racing or irregular heart beat. Denies ankle edema. RESPIRATORY: Denies cough, cold, or chest congestion. Denies shortness of breath, difficulty breathing, or wheezing. GASTROINTESTINAL: Denies abdominal pain or distention. Denies nausea, vomiting , or diarrhea. Denies blood in vomitus, stools, or per rectum. Denies black, tarry stools. Denies constipation. GENITOURINARY: Denies difficulty urinating, painful urination, burning, frequency, blood in urine, or discharge. MUSCULOSKELETAL: Denies back or neck pain or stiffness. Denies joint pain or swelling. SKIN: Denies rash, lesions or sores. HEMATOLOGIC : Denies easy bruising or bleeding. LYMPHATIC: Denies swollen, enlarged glands. NEUROLOGICAL: Denies confusion or altered mental status. Denies passing out or loss of consciousness. Denies dizziness or lightheadedness. Denies headache. Denies weakness or paralysis or loss of use of either side. Denies problems with gait or speech. Denies sensory loss, numbness, or tingling. Denies seizures. PSYCHIATRIC: Denies anxiety or stress. Denies depression, suicidal ideation, or homicidal ideation. ALL OTHER SYSTEMS REVIEWED AND NEGATIVE. Dictation was performed using [employer] recognition software PHYSICAL EXAMINATION: GENERAL: Well-appearing, well-nourished and in no acute distress. HEAD: Atraumatic, normocephalic. EYES: Pupils equal round and reactive to light, extraocular movements intact, sclera anicteric, conjunctiva are normal. ENT: Nares patent, oropharynx clear without exudates. Moist mucous membranes. NECK: Normal range of motion, supple without lymphadenopathy LUNGS: Breath sounds clear to auscultation bilaterally and equal. No wheezes rales or rhonchi. HEART: Regular rate and rhythm without murmurs ABDOMEN: Soft, nontender, nondistended abdomen. No guarding, no rebound. No masses appreciated. Musculoskeletal: Normal range of motion, no pitting or edema. No cyanosis. NEUROLOGICAL: Cranial nerves grossly intact. Normal speech, normal gait. Normal sensory, motor exams PSYCH: Normal mood, normal affect. SKIN: Warm, Dry, normal turgor, no rashes or lesions noted. History of present illness TRAVEL OUTSIDE OF THE [place] IN LAST 30 DAYS: No - HPI Patient complains to provider of: No: Abdominal pain, Diarrhea, Dysuria, Feeding tube problem, Flank pain, Christianson catheter problem, Groin pain, Hematuria , Testicular pain, Urinary retention, Vomiting, Other Severity at maximum: Mild Severity in ED: Mild Context: denies: Bad food, Lifting, Out of the country travel, , Recent trauma, Other Location: No: Chest pain, Epigastric, LUQ, LLQ, RUQ, RLQ, Left flank, Right flank, Low back, Suprapubic, Pelvis, Left testicle, Right testicle, Rectal, Other - Related Data Allergies/Adverse Reactions: No Known Allergies Allergy (Verified 05/31/16 17:17) Past Medical History - Social History Smoking Status: Never Smoker Frequency of alcohol use: Occasional Family History: Reviewed & Not Pertinent. denies: Arthritis, CAD, COPD, CVA, DM , Hyperlipidemia, Hypertension, Malignancy, Thyroid Disfunction Patient has suicidal ideation: No Patient has homicidal ideation: No Renal/ Medical History: Denies: Hx Peritoneal Dialysis - Immunizations Immunizations up to date: Yes Hx Diphtheria, Pertussis, Tetanus Vaccination: Yes Review of Systems - Review of Systems -: Yes ROS unobtainable due to patient's medical condition Constitutional: denies: No symptoms reported, See HPI, Chills, Diaphoresis, Fever, Malaise, Weakness, Other, Weight gain, Weight loss, Recent illness EENT: denies: No symptoms reported, See HPI, Eye pain, Eye discharge, Blurred vision, Tearing, Double vision, Ear pain, Ear discharge, Nose pain, Nose congestion, Nose discharge, Sinus pressure, Sinus discharge, Throat pain, Difficulty swallowing, Throat swelling, Mouth pain, Mouth swelling, Dental problem, Vertigo, Other Cardiovascular: denies: No symptoms reported, See HPI, Chest pain, Palpitations , Heart racing, Orthopnea, Dyspnea, Syncope, Dizziness, Lightheaded, Edema, Other, Paroxysmal Nocturnal Dysp Respiratory: denies: No symptoms reported, See HPI, Cough, Hurts to breathe, Hemoptysis, Short of breath, Sputum, Stridor, Wheezing, Other Gastrointestinal: denies: No symptoms reported, See HPI, Abdomen distended, Abdominal pain, Diarrhea, Nausea, Vomiting, Constipation, Blood streaked bowels , Poor appetite, Poor fluid intake, Blood in vomit, Black stools, Rectal bleeding, Last bowel movement, Fecal incontinence, Other Genitourinary: denies: No symptoms reported, See HPI, Burning, Dysuria, Discharge, Frequency, Flank pain, Hematuria, Incontinence, Pain, Urgency, Retention, Other Male Genitourinary: denies: No symptoms reported, See HPI, Erectile dysfunction , Testicular pain, Penile discharge, Other Musculoskeletal: denies: No symptoms reported, See HPI, Back pain, Gout, Joint pain, Joint swelling, Muscle pain, Muscle stiffness, Neck pain, Deformity, Leg swelling, Ankle swelling, Other Skin: denies: No symptoms reported, See HPI, Change in color, Change in hair/ nails, Dryness, Lesions, Lumps, Rash, Other Neurological/Psychological: denies: No symptoms reported, See HPI, Confusion, Dementia, Depression, Hallucinations, Anxiety, Homicidal ideation, Sensory change, Weakness, Gait changes, Loss of power, Paralysis, Seizure, Lost consciousness, Headaches, Speech impairment, Numbness, Suicidal ideation, Tingling, Tremor, Other Physical Exam - Vital signs Vitals: Temp Pulse Resp BP Pulse Ox 98.8 F 61 16 140/79 H 98 09/17/17 09:45 09/17/17 09:45 09/17/17 09:45 09/17/17 09:45 09/17/17 09:45 Course - Re-evaluation Re-evalutation: 09/17/17 10:23 He was explained that he needs to go to [facility] to get the referral. - Vital Signs Vital signs: Temp Pulse Resp BP Pulse Ox 98.8 F 61 16 140/79 H 98 09/17/17 09:45 09/17/17 09:45 09/17/17 09:45 09/17/17 09:45 09/17/17 09:45 Discharge - Discharge Clinical Impression: Priapism Condition: Fair Disposition: HOME, SELF-CARE Instructions: Helga ([facility])
== END 2017-09-17 10:28 | disposition home or self-care (01) ==
LOC: ER 09:40
DX: N48.30 Priapism, unspecified (principal); R10.30 Lower abdominal pain, unspecified
CPT/HCPCS: 99283

== ENCOUNTER 2017-09-18 04:24 | Emergency (ER) | payer OTHER ==
[2017-09-18 04:30] VITALS: BP 129/77
--- NOTE | 2017-09-18 04:48 | ER Document Report ---
ED GI/ - General Chief Complaint: Penile Problem Stated Complaint: PENILE PROBLEM Time Seen by Provider: 09/18/17 04:42 Notes: The patient is a 22-year-old male who presents with another episode of priapism for the past hour. He has had frequent episodes this week and had difficulty seeing the [place] [facility] because of a referral needed from [facility]. [place]. In the past, phenylephrine injections into the corpus cavernosum have helped him. He started testosterone pills a few months ago, but his last use was 2 weeks ago. Denies any psychiatric medications, history of sickle cell or injury. TRAVEL OUTSIDE OF THE [place] IN LAST 30 DAYS: No - Related Data Allergies/Adverse Reactions: No Known Allergies Allergy (Verified 05/31/16 17:17) Past Medical History - General Information source: Patient - Social History Smoking Status: Unknown if Ever Smoked Family History: Reviewed & Not Pertinent. denies: Arthritis, CAD, COPD, CVA, DM , Hyperlipidemia, Hypertension, Malignancy, Thyroid Disfunction Renal/ Medical History: Denies: Hx Peritoneal Dialysis - Immunizations Immunizations up to date: Yes Hx Diphtheria, Pertussis, Tetanus Vaccination: Yes Review of Systems - Review of Systems Notes: REVIEW OF SYSTEMS: CONSTITUTIONAL: -fevers, -chills GASTROINTESTINAL: -abdominal pain, -nausea, -vomiting, -diarrhea GENITOURINARY: +priapism, -dysuria, -hematuria MUSCULOSKELETAL: -back pain, -neck pain SKIN: -rash or skin lesions. HEMATOLOGIC: -easy bruising or bleeding. LYMPHATIC: -swollen, enlarged glands. NEUROLOGICAL: -altered mental status or loss of consciousness, -headache, - neurologic symptoms PSYCHIATRIC: -anxiety, -depression. ALL OTHER SYSTEMS REVIEWED AND NEGATIVE. Physical Exam - Vital signs Vitals: Temp Pulse Resp BP Pulse Ox 98.7 F 65 18 129/77 H 97 09/18/17 04:29 09/18/17 04:29 09/18/17 04:29 09/18/17 04:29 09/18/17 04:29 - Notes Notes: PHYSICAL EXAMINATION: GENERAL: Well-appearing, well-nourished and in no acute distress. HEAD: Atraumatic, normocephalic. EYES: Pupils equal round and reactive to light, extraocular movements intact, sclera anicteric, conjunctiva are normal. ENT: nares patent, oropharynx clear without exudates. Moist mucous membranes. NECK: Normal range of motion, supple without lymphadenopathy ABDOMEN: Soft, nontender, normoactive bowel sounds. No guarding, no rebound. No masses appreciated. : Erect penis, soft glans, non-tender testicles. EXTREMITIES: Normal range of motion, no pitting or edema. No cyanosis. NEUROLOGICAL: Cranial nerves grossly intact. Normal speech, normal gait. Normal sensory and motor exams. PSYCH: Normal mood, normal affect. SKIN: Warm, Dry, normal turgor, no rashes or lesions noted. Course - Re-evaluation Re-evalutation: Patient with recurrent priapism episodes. After 2 mL diluted phenylephrine, his priapism resolved. He has an appointment with the urologist at [facility]. Given return precautions and he understands. PROCEDURE NOTE: 09/18/17 04:47 Patient's penile shaft was cleaned with chlorhexidine. I then used a 23-gauge butterfly needle and aspirated 5 mL's of blood from the corpus cavernosum on the right side. I then injected 2 mL of a Moncho-Synephrine mixture containing 500 mcg/ml. Patient's prism resolved within 5 minutes. Patient has complete resolution of symptoms and feels better. Neosynephrine mixture was created by mixing 1ml of the 10mg/ml Nesoynephrine solution with 19mls of normal saline; therefore, giving 10mg of Neosynephrine in 20mls of solution. - Vital Signs Vital signs: Temp Pulse Resp BP Pulse Ox 98.7 F 65 18 129/77 H 97 09/18/17 04:29 09/18/17 04:29 09/18/17 04:29 09/18/17 04:29 09/18/17 04:29 Discharge - Discharge Clinical Impression: Priapism, unspecified Condition: Stable Disposition: HOME, SELF-CARE Additional Instructions: [place]. You may take Sudafed to help with any further erections. Return to the ER if you have a persistent erection over 1 hour. Forms: Elevated Blood Pressure Referrals: [facility] [Provider Group] - Follow up as needed
[2017-09-18] MEDS ORDERED: PHENYLEPHRINE HCL INJ/PF 10 MG/1 ML SDV SUBCUT ONE (05:00)
== END 2017-09-18 05:17 | disposition home or self-care (01) ==
LOC: ER 04:24
PROC: 3E1N38Z Irrigation of Male Reproductive using Irrigating Substance, Percutaneous Approach (ICD-10-PCS; principal; 2017-09-18)
DX: N48.30 Priapism, unspecified (principal)
CPT/HCPCS: 99283; 96374; 54220; J2370

== ENCOUNTER 2017-09-20 10:29 | Emergency (ER) | payer OTHER ==
[2017-09-20] MEDS ORDERED: PSEUDOEPHEDRINE HCL 30 MG TABLET PO ONE (11:30)
[2017-09-20] MEDS ORDERED: PHENYLEPHRINE HCL INJ/PF 10 MG/1 ML SDV IV ONE (11:32)
--- NOTE | 2017-09-20 11:35 | ER Document Report ---
ED GI/ - General Chief Complaint: Penile Problem Stated Complaint: PENILE PROBLEM Time Seen by Provider: 09/20/17 11:23 Notes: 22-year-old male seen here multiple times for preop is him. Woke up this morning with erection. Has been present for about 3 hours and not getting better. States that he has had phenylephrine injections in the past which resolved his symptoms. Patient denies any Viagra or phosphodiesterase inhibitors. Denies being on any supplements. Denies history of sickle cell disease or other blood-borne diseases. No recent travel outside the [place]. Denies any relapsing fevers. No history of malaria. TRAVEL OUTSIDE OF THE [place] IN LAST 30 DAYS: No - HPI Patient complains to provider of: Groin pain - Related Data Allergies/Adverse Reactions: No Known Allergies Allergy (Verified 09/20/17 10:29) Past Medical History - General Information source: Patient - Social History Smoking Status: Never Smoker Chew tobacco use (# tins/day): No Frequency of alcohol use: None Drug Abuse: None Lives with: Alone Family History: Reviewed & Not Pertinent. denies: Arthritis, CAD, COPD, CVA, DM , Hyperlipidemia, Hypertension, Malignancy, Thyroid Disfunction Patient has suicidal ideation: No Patient has homicidal ideation: No Renal/ Medical History: Denies: Hx Peritoneal Dialysis - Immunizations Immunizations up to date: Yes Hx Diphtheria, Pertussis, Tetanus Vaccination: Yes Review of Systems - Review of Systems Constitutional: No symptoms reported EENT: No symptoms reported Cardiovascular: No symptoms reported Respiratory: No symptoms reported Gastrointestinal: No symptoms reported Genitourinary: See HPI, Other - Persistent erection Male Genitourinary: No symptoms reported Musculoskeletal: No symptoms reported Skin: No symptoms reported Hematologic/Lymphatic: No symptoms reported Neurological/Psychological: No symptoms reported Physical Exam - Vital signs Vitals: Temp Pulse Resp BP Pulse Ox 98.5 F 62 14 155/91 H 99 09/20/17 10:36 09/20/17 10:36 09/20/17 10:36 09/20/17 10:36 09/20/17 10:36 Interpretation: Normal - General General appearance: Appears well, Alert - HEENT Head: Normocephalic, Atraumatic Eyes: Normal Pupils: PERRL - Respiratory Respiratory status: No respiratory distress Chest status: Nontender Breath sounds: Normal Chest palpation: Normal - Cardiovascular Rhythm: Regular Heart sounds: Normal auscultation Murmur: No - Abdominal Inspection: Normal Distension: No distension Bowel sounds: Normal Tenderness: Nontender Organomegaly: No organomegaly - Genitourinary Notes: Patient has erection. No breakdown tissue. - Back Back: Normal, Nontender - Extremities General upper extremity: Normal inspection, Nontender, Normal color, Normal ROM , Normal temperature General lower extremity: Normal inspection, Nontender, Normal color, Normal ROM , Normal temperature, Normal weight bearing. No: Cathleen's sign - Neurological Neuro grossly intact: Yes Cognition: Normal Orientation: AAOx4 Immacul[place] Coma Scale Eye Opening: Spontaneous Liz Coma Scale Verbal: Oriented Immaculata Coma Scale Motor: Obeys Commands Liz Coma Scale Total: 15 Speech: Normal Motor strength normal: LUE, RUE, LLE, RLE Sensory: Normal - Psychological Associated symptoms: Normal affect, Normal mood - Skin Skin Temperature: Warm Skin Moisture: Dry Skin Color: Normal Course - Re-evaluation Re-evalutation: 09/20/17 13:05 Penile aspiration and injection: Patient with obvious priapism. After consent was obtained the dorsal penile shaft was prepped with Betadine. A 23-gauge butterfly needle was used to aspirate approximately 5 cc of blood on the left and right. 1 cc of phenylephrine was then injected. Patient had near immediate detumescence. Dressing was applied. Reexamined patient after 30 minutes and patient still had flaccid penis. Band-Aids were applied. 30 mg of Sudafed given p.o. Patient tolerated procedure well. No complications. Has follow-up appointment with urology. 09/20/17 13:22 Laboratory 09/20/17 09/20/17 12:10 12:10 WBC 7.7 RBC 5.39 Hgb 16.1 Hct 46.6 MCV 86 MCH 29.8 MCHC 34.5 RDW 12.8 Plt Count 265 Seg Neutrophils % 73.2 Lymphocytes % 19.7 Monocytes % 5.6 Eosinophils % 1.2 Basophils % 0.3 Absolute Neutrophils 5.7 Absolute Lymphocytes 1.5 Absolute Monocytes 0.4 Absolute Eosinophils 0.1 Absolute Basophils 0.0 Sodium 144.0 Potassium 4.5 Chloride 101 Carbon Dioxide 32 H Anion Gap 11 BUN 14 Creatinine 0.91 Est GFR ( Amer) > 60 Est GFR (Non-Af Amer) > 60 Glucose 92 Calcium 9.9 Total Bilirubin 0.4 Direct Bilirubin 0.2 Neonat Total Bilirubin Not Reportable Neonat Direct Bilirubin Not Reportable Neonat Indirect Bili Not Reportable AST 30 ALT 44 Alkaline Phosphatase 102 Total Protein 7.7 Albumin 4.6 - Vital Signs Vital signs: Temp Pulse Resp BP Pulse Ox 98.5 F 62 14 155/91 H 99 09/20/17 10:36 09/20/17 10:36 09/20/17 10:36 09/20/17 10:36 09/20/17 10:36 - Laboratory Result Diagrams: 09/20/17 12:10 09/20/17 12:10 Laboratory results interpreted by me: 09/20/17 12:10 Carbon Dioxide 32 H Discharge - Discharge Clinical Impression: Priapism Condition: Good Disposition: HOME, SELF-CARE Instructions: Helga ([facility]) Additional Instructions: Please follow-up with urology at [facility] as instructed. Return immediately if symptoms return.
[2017-09-20 12:43] LABS: ABSOLUTE EOSINOPHILS # (AUTO) 0.1 10^3/uL (0.0-0.6); ABSOLUTE LYMPHOCYTES (AUTO) 1.5 10^3/uL (0.5-4.7); ABSOLUTE MONOCYTES (AUTO) 0.4 10^3/uL (0.1-1.4); ABSOLUTE NEUT (AUTO) 5.7 10^3/uL (1.7-8.2); BASOPHILS % (AUTO) 0.3 % (0-2); EOSINOPHILS % (AUTO) 1.2 % (0-6); HEMATOCRIT 46.6 % (37.9-51.0); HEMOGLOBIN 16.1 g/dL (13.5-17.0); LYMPHOCYTES % (AUTO) 19.7 % (13-45); MEAN CORPUSCULAR HEMOGLOBIN 29.8 pg (27.0-33.4); MEAN CORPUSCULAR HGB CONC 34.5 g/dL (32.0-36.0); MEAN CORPUSCULAR VOLUME 86 fl (80-97); MONOCYTES % (AUTO) 5.6 % (3-13); PLATELET COUNT 265 10^3/uL (150-450); RED BLOOD COUNT 5.39 10^6/uL (4.35-5.55); RED CELL DISTRIBUTION WIDTH 12.8 % (11.5-14.0); SEGMENTED NEUTROPHILS % (AUTO) 73.2 % (42-78); TOTAL CELLS COUNTED % (AUTO) 100 %; WHITE BLOOD COUNT 7.7 10^3/uL (4.0-10.5)
[2017-09-20 13:06] LABS: ALANINE AMINOTRANSFERASE 44 U/L (21-72); ALBUMIN 4.6 g/dL (3.5-5.0); ALKALINE PHOSPHATASE 102 U/L (38-126); ANION GAP 11 (5-19); ASPARTATE AMINO TRANSFERASE 30 U/L (17-59); BILIRUBIN,DIRECT 0.2 mg/dL (0.0-0.4); BILIRUBIN,TOTAL 0.4 mg/dL (0.2-1.3); BLOOD UREA NITROGEN 14 mg/dL (7-20); CALCIUM 9.9 mg/dL (8.4-10.2); CARBON DIOXIDE 32 mmol/L (22-30); CHLORIDE 101 mmol/L (98-107); GLUCOSE 92 mg/dL (75-110); POTASSIUM 4.5 mmol/L (3.6-5.0); TOTAL PROTEIN 7.7 g/dL (6.3-8.2)
[2017-09-20 13:39] VITALS: BP 131/63
== END 2017-09-20 13:39 | disposition home or self-care (01) ==
LOC: ER 10:29
DX: N48.30 Priapism, unspecified (principal); R10.30 Lower abdominal pain, unspecified
CPT/HCPCS: 99283; 96374; 36415; 85025; 80053; J2370

== ENCOUNTER 2017-09-26 08:23 | Emergency (ER) | payer OTHER ==
[2017-09-26] MEDS ORDERED: PHENYLEPHRINE HCL INJ/PF 10 MG/1 ML SDV IV ONE (09:04)
[2017-09-26] MEDS ORDERED: PSEUDOEPHEDRINE HCL 30 MG TABLET PO ONE (09:05)
--- NOTE | 2017-09-26 09:05 | ER Document Report ---
ED GI/ - General Chief Complaint: Penile Problem Stated Complaint: PAINFUL PROLONGED ERECTION Time Seen by Provider: 09/26/17 08:37 Notes: 22-year-old female to emergency department chief complaint of preop is him. Patient has been seen multiple times for preop is him. Seen a urologist last week who does not know why he was having these erections. Patient adamantly denies taking any medications, [id number] supplements or anyone else's medications. Patient states that he woke up with an erection. Is lasted for several hours now and it it is getting more painful. Denies any other symptoms TRAVEL OUTSIDE OF THE [place] IN LAST 30 DAYS: No - HPI Onset: Just prior to arrival - Related Data Allergies/Adverse Reactions: No Known Allergies Allergy (Verified 09/26/17 08:26) Past Medical History - General Information source: Patient - Social History Smoking Status: Never Smoker Cigarette use (# per day): No Frequency of alcohol use: None Drug Abuse: None Lives with: Family Family History: Reviewed & Not Pertinent. denies: Arthritis, CAD, COPD, CVA, DM , Hyperlipidemia, Hypertension, Malignancy, Thyroid Disfunction Renal/ Medical History: Denies: Hx Peritoneal Dialysis - Immunizations Immunizations up to date: Yes Hx Diphtheria, Pertussis, Tetanus Vaccination: Yes Review of Systems - Review of Systems Constitutional: denies: Fever, Malaise, Weakness EENT: denies: Ear pain, Nose pain, Mouth pain Cardiovascular: denies: Chest pain, Palpitations, Syncope, Dizziness, Lightheaded Gastrointestinal: denies: Abdominal pain, Diarrhea, Nausea Genitourinary: Other - Prolonged erection. denies: Frequency, Urgency, Retention Male Genitourinary: See HPI, Other - priapism Musculoskeletal: No symptoms reported Skin: No symptoms reported Hematologic/Lymphatic: No symptoms reported Neurological/Psychological: No symptoms reported Physical Exam - Vital signs Vitals: Temp Pulse Resp BP Pulse Ox 98.6 F 63 16 146/88 H 98 09/26/17 08:28 09/26/17 08:28 09/26/17 08:28 09/26/17 08:28 09/26/17 08:28 - Respiratory Respiratory status: No respiratory distress Chest status: Nontender Breath sounds: Normal Chest palpation: Normal - Cardiovascular Rhythm: Regular Heart sounds: Normal auscultation Murmur: No - Abdominal Inspection: Normal Distension: No distension Bowel sounds: Normal Tenderness: Nontender Organomegaly: No organomegaly - Genitourinary Tenderness: Nontender Scrotum: Normal Notes: Erect penis - Extremities General upper extremity: Normal inspection, Nontender, Normal color, Normal ROM , Normal temperature General lower extremity: Normal inspection, Nontender, Normal color, Normal ROM , Normal temperature, Normal weight bearing. No: Cathleen's sign Course - Re-evaluation Re-evalutation: 09/26/17 10:05 Procedure note: Pre-of present treatment. Aspiration of corpus cavernosum and injection After verbal consent obtained the dorsal penile shaft was prepped with Betadine. A mixture of phenylephrine 10 mg/ml mixed with 20 cc of injectable normal saline constituted. A 23-gauge butterfly needle was used to aspirate and inject at the 2:00 and 10:00 positions on the penile shaft. Approximately 5 mL of dark blood was removed from each side. 1 mL of mixture was injected at the 2:00 and 10 o'clock position. Band-Aids were applied. Patient tolerated procedure well. No complications. Successful detumescence of the penis was achieved. 09/26/17 10:07 he was advised to follow-up with his urologist as soon as possible. Advised to return for any worsening symptoms. - Vital Signs Vital signs: Temp Pulse Resp BP Pulse Ox 98.6 F 63 16 146/88 H 98 09/26/17 08:28 09/26/17 08:28 09/26/17 08:28 09/26/17 08:28 09/26/17 08:28 Discharge - Discharge Clinical Impression: Priapism, unspecified Condition: Good Disposition: HOME, SELF-CARE Instructions: Priapism ([facility]) Additional Instructions: Please follow-up with your urologist as instructed. Return for any worsening symptoms or concerns. Continue with Sudafed as instructed. Avoid any over-the- counter supplements, male enhancement products, Viagra or other phosphodiesterase inhibitors.
[2017-09-26 10:28] VITALS: BP 140/72
== END 2017-09-26 10:27 | disposition home or self-care (01) ==
LOC: ER 08:23
DX: N48.30 Priapism, unspecified (principal)
CPT/HCPCS: 99284; 96374; 54220; J2370

== ENCOUNTER 2017-09-29 05:40 | Emergency (ER) | payer OTHER ==
[2017-09-29 05:49] VITALS: BP 132/77
--- NOTE | 2017-09-29 06:47 | ER Document Report ---
ED General - General Chief Complaint: Penile Problem Stated Complaint: PENILE ISSUE Time Seen by Provider: 09/29/17 06:37 TRAVEL OUTSIDE OF THE [place] IN LAST 30 DAYS: No - HPI Notes: 22-year-old male presents with priapism. Patient has a history of recurrent priapism. He is actually scheduled to see a urologist again this week and is seen more in the past. States he woke around 3 AM with an erection that was not normal. Persistent over approximately 3 hours, he did come to the emergency department to be evaluated. He denies any medications except for Sudafed. He does not take any neuroleptics. Is not taking any herbal supplementation or recreational drugs. Describes moderate persistent throbbing pain. Nonradiating. No other modifying factors, no other associated symptoms, no other provocative or palliative factors. Prior to my evaluation, he apparently detumesced and is now requesting discharge - Related Data Allergies/Adverse Reactions: No Known Allergies Allergy (Verified 09/26/17 08:26) Past Medical History - Social History Smoking Status: Never Smoker Family History: Reviewed & Not Pertinent. denies: Arthritis, CAD, COPD, CVA, DM , Hyperlipidemia, Hypertension, Malignancy, Thyroid Disfunction - Medical History Medical History: Other Notes: Includes previous priapism Renal/ Medical History: Denies: Hx Peritoneal Dialysis - Immunizations Immunizations up to date: Yes Hx Diphtheria, Pertussis, Tetanus Vaccination: Yes Review of Systems - Review of Systems Notes: Review of systems as in history of present illness, otherwise no significant headache, chest pain, abdominal pain. Physical Exam - Vital signs Vitals: Temp Pulse Resp BP Pulse Ox 98.4 F 60 18 132/77 H 98 09/29/17 05:46 09/29/17 05:46 09/29/17 05:46 09/29/17 05:46 09/29/17 05:46 - Notes Notes: General: Well devloped, no acute distress. HEENT: Normocephalic, atraumatic. Pupils equal round reactive to light. Mucosa moist. No JVD. Chest: No trauma, normal excursion. Respiratory: Good air exchange, normal excursion. Cardiac: Regular rhythm Abdomen: Soft, benign. Nondistended. Back: No asymmetry or gross abnormality. Motor: Grossly normal power and tone. Neurologic: Alert, nonfocal. Vascular: Well perfused Skin: No petechiae or purpura Genitalia: Circumcised male, descended testes, nontender, detumesce, no masses Course - Re-evaluation Re-evalutation: 09/29/17 07:11 Well-appearing male priapism, now spontaneously detumesced. Discharged home to follow-up with urology. - Vital Signs Vital signs: Temp Pulse Resp BP Pulse Ox 98.4 F 60 18 132/77 H 98 09/29/17 05:46 09/29/17 05:46 09/29/17 05:46 09/29/17 05:46 09/29/17 05:46 Discharge - Discharge Clinical Impression: Priapism Condition: Good Disposition: HOME, SELF-CARE Instructions: Priapism ([facility]) Additional Instructions: Follow-up with your urologist as discussed
== END 2017-09-29 06:50 | disposition home or self-care (01) ==
LOC: ER 05:40
DX: N48.30 Priapism, unspecified (principal)
CPT/HCPCS: 99283